=== PATIENT | male | born 1970 | race Caucasian/White ===

== ENCOUNTER → 2017-04-16 15:22 | Emergency (ER) | payer BC ==
[~2017-04-16 15:22] MED LIST: Enoxaparin(*) 100 MG/ML SYR SUBCUT ONE
--- NOTE | 2017-04-16 15:58 | ED ---
Lower Extremity - HPI Summary HPI Summary: 46M presents with left calf pain and swelling for a day. He has a strong family history of factor 5 but does not know if he has it. He does smoke. He denies any recent travel or immobilization. He denies any chest pain or SOB. He denies any trauma. He denies any rash or fever. The pain is located at the back of his knee. He has not taken anything for pain. Has history of neck pain that is going to have surgery on and recent had cortisone shot. - History of Current Complaint Chief Complaint: EDExtremityLower Stated Complaint: LEFT LEG INJURY Time Seen by Provider: 04/16/17 15:44 Pain Intensity: 5 - Allergies/Home Medications Allergies/Adverse Reactions: Allergies Allergy/AdvReac Type Severity Reaction Status Date / Time No Known Allergies Allergy Verified 04/16/17 16:04 PMH/Surg Hx/FS Hx/Imm Hx Endocrine/Hematology History: Denies: Hx Anticoagulant Therapy Cardiovascular History: Denies: Hx Hypertension Infectious Disease History: Denies: Traveled Outside the [place] in Last 30 Days - Family History Known Family History: Positive: Other - factor 5 Review of Systems Negative: Fever Negative: Chest Pain Negative: Shortness Of Breath Positive: Edema - left calf with pain All Other Systems Reviewed And Are Negative: Yes Physical Exam Triage Information Reviewed: Yes Vital Signs On Initial Exam: Initial Vitals Temp Pulse Resp BP Pulse Ox 98.4 F 87 20 145/96 97 04/16/17 15:37 04/16/17 15:37 04/16/17 15:37 04/16/17 15:37 04/16/17 15:37 Vital Signs Reviewed: Yes Appearance: Positive: Well-Appearing Skin: Positive: Warm, Dry Head/Face: Positive: Normal Head/Face Inspection Eyes: Positive: Normal, Conjunctiva Clear Respiratory/Lung Sounds: Positive: Clear to Auscultation, Breath Sounds Present Cardiovascular: Positive: Normal, RRR Musculoskeletal: Positive: Strength/ROM Intact - left leg, Edema Left - mild edema present, Other - good pulses, capillary refill<2 secs, tender to posterior aspect of calf. Negative: Chela Sign Left Diagnostics - Vital Signs Vital Signs Temp Pulse Resp BP Pulse Ox 04/16/17 15:37 98.4 F 87 20 145/96 97 - Laboratory Result Diagrams: 04/16/17 17:11 04/16/17 17:11 Lab Statement: Any lab studies that have been ordered have been reviewed, and results considered in the medical decision making process. - Ultrasound No standard instances Ultrasound Interpretation: Positive (See Comments) - IMPRESSION: Extensive acute appearing LEFT lower extremity deep venous thrombosis as described. Ultrasound Interpretation Completed By: Radiologist Lower Extremity Course/Dx - Course Course Of Treatment: 46M presents with left calf pain and swelling for a day. He has a strong family history of factor 5 but does not know if he has it. He does smoke. He denies any recent travel or immobilization. He denies any chest pain or SOB. He denies any trauma. He denies any rash or fever. The pain is located at the back of his knee. He has not taken anything for pain. Has history of neck pain that is going to have surgery on and recent had cortisone shot. on exam tenderness to half with swelling u/s shows DVT. discussed options with patient of heparin and warfarin vs xarelto and patient wants heparin. told that needs to follow up with a primary to bridge to warfarin. patient understands and agrees with plan. - Diagnoses Differential Diagnosis/HQI/PQRI: Positive: DVT, Fracture (Closed), Sprain Provider Diagnoses: Deep venous thrombosis Discharge - Discharge Plan Condition: Good Disposition: HOME Prescriptions: Enoxaparin(*) [Lovenox(*)] 100 mg SUBCUT Q12HR #20 syringe Patient Education Materials: Deep Venous Thrombosis (ED) Referrals: [facility] [place] [facility] REFERR[facility] [Outside] Additional Instructions: Take lovenox 100mg twice a day until see primary can bridge to warfarin Establish care with primary as soon as possible Return to ED if develop any shortness of breath or chest pain or any new or worsening symptoms
--- NOTE | 2017-04-16 17:02 | RAD ---
INDICATION: LEFT lower extremity pain and edema. COMPARISON: No relevant prior exams available on the [facility] PACS for comparison. TECHNIQUE: Maria scale, color Doppler, and spectral analysis of the deep veins of the LEFT lower extremity. Vessel compression, phasicity, and augmentation assessed. REPORT: LEFT common femoral and great saphenous femoral junction. Near occlusive thrombosis of the profunda femoral vein with mobile appearing thrombus documented on cine loop. Patent proximal and mid segments of the femoral vein. Occlusive thrombosis of the distal segment of the femoral vein as well as the popliteal vein and the paired posterior tibial and peroneal veins. The thrombus appears hypoechoic favoring acute thrombosis. Patency of the RIGHT common femoral vein documented. IMPRESSION: Extensive acute appearing LEFT lower extremity deep venous thrombosis as described.
[2017-04-16 17:21] LABS: Hematocrit 49 % (42-52); Hemoglobin 16.5 g/dl (14.0-18.0); Mean Corpuscular HGB Conc 34 g/dl (31-36); Mean Corpuscular Hemoglobin 31 pg (27-31); Mean Corpuscular Volume 92 fL (80-94); Mean Platelet Volume 8 um3 (7.4-10.4); Red Blood Count 5.35 10^6/ul (4.0-5.4); Red Cell Distribution Width 14 % (10.5-15); White Blood Count 11.3 10^3/ul (3.5-10.8)
[2017-04-16 17:36] LABS: Albumin 4.2 g/dL (3.2-5.2); BUN/Creatinine Ratio 8.9 (8-20); EGFR African American 117.4 (>60); EGFR Non-African American 91.3 (>60); Globulin 3.1 g/dL (2-4); Potassium 3.9 mmol/L (3.5-5.0); Total Bilirubin 0.7 mg/dL (0.2-1.0); Total Protein 7.3 g/dL (6.4-8.9)
[2017-04-16 18:36] VITALS: BP 140/85
== END | disposition home or self-care (01) ==
LOC: ED 15:22
DX: I82.402 Acute embolism and thrombosis of unspecified deep veins of left lower extremity (principal); M79.605 Pain in left leg; R60.9 Edema, unspecified
CPT/HCPCS: 36415; 80053; 85025; 85610; 85730; 99282; J1650

== ENCOUNTER 2017-04-20 02:18 | Observation (INO) | payer BC ==
--- NOTE | 2017-04-20 03:21 | ED ---
Angeles Lyon SooYoung, scribed for Emre Perdomo MD on 04/20/17 at 0301 . 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 Pert PMHx: DVT in LE, started on Lovenox four days ago. Associated sx: racing palpitations, lightheadedness. Denies calf pain. He is scheduled to start taking Warfarin in four days. - History of Current Complaint Chief Complaint: EDShortnessOfBreath Time Seen by Provider: 04/20/17 02:59 Hx Obtained From: Patient Onset/Duration: Still Present Timing: Constant Dyspnea At: Rest - Allergy/Home Medications Allergies/Adverse Reactions: Allergies Allergy/AdvReac Type Severity Reaction Status Date / Time No Known Allergies Allergy Verified 04/16/17 16:04 PMH/Surg Hx/FS Hx/Imm Hx Previously Healthy: No - pos: DVT Endocrine/Hematology History: Denies: Hx Anticoagulant Therapy Cardiovascular History: Denies: Hx Hypertension Sensory History: Denies: Hx Legally Blind Opthamlomology History: Denies: Hx Legally Blind Infectious Disease History: No Infectious Disease History: Denies: Traveled Outside the [place] in Last 30 Days - Family History Known Family History: Positive: Other - factor 5 - Social History Occupation: Employed Full-time Lives: With Family Alcohol Use: Weekly Hx Substance Use: No Substance Use Type: Reports: None Hx Tobacco Use: Yes Smoking Status (MU): Current Every Day Smoker Review of Systems Negative: Fever Positive: Palpitations - racing Positive: Shortness Of Breath Negative: Myalgia - neg: calf pain Neurological: Other - pos: lightheadedness All Other Systems Reviewed And Are Negative: Yes Physical Exam Triage Information Reviewed: Yes Vital Signs On Initial Exam: Initial Vitals Temp Pulse Resp BP Pulse Ox 99 F 93 20 136/94 96 04/20/17 02:22 04/20/17 02:22 04/20/17 02:22 04/20/17 02:22 04/20/17 02:22 Vital Signs Reviewed: Yes Appearance: Positive: Well-Appearing, No Pain Distress Skin: Positive: Warm Head/Face: Positive: Normal Head/Face Inspection Eyes: Positive: ZORAIDA ENT: Positive: Hearing grossly normal Neck: Positive: Supple, Nontender Respiratory/Lung Sounds: Positive: Clear to Auscultation, Breath Sounds Present Cardiovascular: Positive: RRR Abdomen Description: Positive: Nontender, Soft Bowel Sounds: Positive: Present Musculoskeletal: Positive: Strength/ROM Intact Neurological: Positive: Alert, Oriented to Person Place, Time - Gabby Coma Scale Coma Scale Total: 15 Diagnostics - Vital Signs Vital Signs Temp Pulse Resp BP Pulse Ox 04/20/17 02:52 16 04/20/17 02:22 99 F 93 20 136/94 96 - Laboratory Lab Statement: Any lab studies that have been ordered have been reviewed, and results considered in the medical decision making process. - CT CHEST CTA CT Interpretation: Positive (See Comments) - FINDINGS: Positive for acute bilat pulmonary arteries predominantly involving the bilateral proximal and mid lower lobe arteries, but also involving the arteries to the R middle and upper lobes. No saddle emboli. R ventricle slightly enlarged. Consider R heart strain. Negative for thoracic aortic aneurysm or dissection. Lungs are clear at this time. Liver cyst incidentally noted. CT Interpretation Completed By: Radiologist - EKG 0243 Cardiac Rate: NL - 88bpm EKG Rhythm: Sinus Rhythm Ectopy: PVCs EKG Interpretation: Left anterior abraham-block Re-Evaluation - Re-Evaluation 1 Re-Evaluation Time: 04:49 Change: Improved Comment: Discussing results and hospitalist consult with pt. Pt voiced understanding. 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 Pert PMHx: DVT in LE, started on Lovenox four days ago. Associated sx: racing palpitations, lightheadedness. Denies calf pain. He is scheduled to start taking Warfarin in four days. Chest CTA shows "Positive for acute bilat pulmonary arteries predominantly involving the bilateral proximal and mid lower lobe arteries, but also involving the arteries to the R middle and upper lobes. No saddle emboli. R ventricle slightly enlarged. Consider R heart strain. Negative for thoracic aortic aneurysm or dissection. Lungs are clear at this time. Liver cyst incidentally noted.". EKG shows SR with left anerior abraham- block and PVCs. - Diagnoses Provider Diagnoses: Pulmonary embolus - Physician Notifications Discussed Care of Patient With: Kathryn Fountain - hospitalist Time Discussed With Above Provider: 04:48 Instructed by Provider To: Admit As Inpatient Discharge - Discharge Plan Condition: Fair Disposition: ADMITTED TO [facility] The documentation as recorded by the Angeles ortiz SooYoung accurately reflects the service I personally performed and the decisions made by me, Emre Perdomo MD.
[2017-04-20] MEDS ORDERED: Iohexol 350* (CONTRAST) 500 ML MDV IV ONE (03:55)
[2017-04-20] MEDS: NS 0.9% 1000 ML* 1,000 ML IV SCH ×3 (06:40→23:33)
--- NOTE | 2017-04-20 07:58 | RAD ---
HISTORY: Shortness of breath, history of DVT COMPARISONS: None TECHNIQUE: Multiple contiguous axial CT scans of the chest were obtained after the administration of nonionic intravenous contrast, timed to the pulmonary arterial phase of contrast enhancement.. Coronal and sagittal multiplanar reformations are also submitted for review. FINDINGS: NECK AND THYROID: The lower neck and thyroid are unremarkable. CHEST WALL: There is no lower cervical, axillary, or supraclavicular lymphadenopathy by size criteria. HEART AND PERICARDIUM: There is mild enlargement of the right ventricle AORTA AND PULMONARY VASCULATURE: There are filling defects to the lobar and segmental branches of the right middle lobe and lower lobes bilaterally, and segmental branches of the right upper lobe consistent with acute pulmonary emboli. MEDIASTINUM: There is no mediastinal lymphadenopathy by size criteria. CANDIDA: There is no hilar lymphadenopathy by size criteria. AIRWAY AND ESOPHAGUS: The airway is unremarkable, without endobronchial filling defect. The esophagus is grossly normal. LUNG PARENCHYMA: The lungs are clear. PLEURA: No pleural abnormalities are noted. UPPER ABDOMEN: The patient is status postcholecystectomy. A hepatic cyst is noted BONES AND SOFT TISSUES: Degenerative changes are noted of the spine OTHER: None. IMPRESSION: BILATERAL PULMONARY EMBOLI, WITH MILD RIGHT VENTRICULOMEGALY SUGGESTIVE OF RIGHT HEART STRAIN. PRELIMINARY FINDINGS WERE DISCUSSED WITH DR. AARON, BY DR. SEGAL, AND 4:44 AM ON APRIL 20, 2017.
[2017-04-20] MEDS ORDERED: Enoxaparin(*) 100 MG/ML SYR SUBCUT SCH (09:00)
--- NOTE | 2017-04-20 09:19 | HP ---
CC: [facility] * HISTORY AND PHYSICAL: DATE OF ADMISSION: 04/20/17. PRIMARY CARE PROVIDER: Cabrera [facility]. CHIEF COMPLAINT: Lightheadedness and shortness of breath. HISTORY OF PRESENT ILLNESS: Mr. Gutierrez is a 46-year-old male who was in the emergency room on 04/16/17 with complaints of left calf swelling. At that time , he was diagnosed with an extensive left lower extremity DVT. The patient was started on Lovenox with instructions to establish with primary care provider start the bridging process to Coumadin. The patient states that he saw his new primary care provider yesterday and was given a prescription for Coumadin to start this coming Monday. The patient states he had not been having any issues with the Lovenox and had been taking it as prescribed. He states that he was lying in bed on the morning of admission when he felt the need to get up to go the bathroom. He noticed the pain in his left calf had changed position. He felt that that was odd. In getting up to the bathroom, he felt extremely lightheaded as if he was going to pass out. He also noted that he was short of breath. The patient ultimately ended up walking next door to his dad's house to ask for help. His dad brought him into the emergency room. The patient does admit to some mild discomfort with deep breath, but no significant chest pain. PAST MEDICAL HISTORY: 1. Left lower extremity DVT. 2. Chronic neck pain. PAST SURGICAL HISTORY: None. MEDICATIONS: Lovenox 100 mg subcutaneous q. 12 hours. ALLERGIES: No known drug allergies. FAMILY HISTORY: Mom at the age of 75 of what sounds to be heart failure and complications related to an upper GI bleed. Dad is living. He is 77. He has coronary artery disease. Patient's sister has a history of factor V Leiden deficiency. SOCIAL HISTORY: The patient is approximately half a pack per day smoker for the last 20 years. He drinks alcohol rarely. 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 He is . He has six children. His dad is his healthcare proxy. REVIEW OF SYSTEMS: A complete 11-systems review of systems is obtained. Pertinent positives and negatives are as per HPI and otherwise negative. PHYSICAL EXAMINATION GENERAL: The patient is a well-developed middle-aged male, lying in the stretcher, in no acute distress. VITAL SIGNS: Blood pressure 126/76, pulse 67, respirations 16, temp 99.0, O2 sat 94% on room air. HEENT: Pupils are equal. They are round. They react to light. Extraocular muscles intact. Oropharynx is clear. Oral mucosa is moist. Patient wears a complete upper denture and a partial on the bottom. There is no submandibular cervical or supraclavicular adenopathy. Thyroid is not enlarged. No thyroid nodules noted. PULMONARY: Lungs are clear to auscultation bilaterally, though breath sounds are diminished in all lung gamez. CARDIAC: Normal S1, S2. Regular rate and rhythm. I do not appreciate any murmurs. There is no significant pitting edema of either bilateral lower extremities. ABDOMEN: Bowel sounds are present. Abdomen is soft, nontender, nondistended. MUSCULOSKELETAL: There is no cyanosis or clubbing of the digits. There is full active range of motion of all 4 extremities. NEUROLOGIC: Cranial nerves II through XII are grossly intact. Sensation is intact to light touch throughout. Strength is 5/5 and symmetric in both upper extremities and lower extremities bilaterally. SKIN: Warm and dry. There are no rashes. PSYCH: The patient is alert and oriented x3. Affect appears appropriate. DIAGNOSTIC STUDIES/LAB DATA: None from 04/20/17. Lab work from 04/16/17 reveals a white blood cell count of 11.3, hemoglobin 16.5 , hematocrit of 49, platelets 171. INR of 1.02. Sodium 135, potassium 3.9, chloride 100, CO2 of 28, BUN 8, creatinine 0.90, glucose 82, calcium 9.0, bilirubin 0.7, AST 12, ALT 9, alk phos 80, albumin of 4.2. CTA chest reveals acute bilateral pulmonary emboli involving the bilateral proximal and mid lower lobe arteries, also involving the arteries of the right middle and upper lobes. The right ventricle appears slightly enlarged on CT. EKG reveals normal sinus rhythm with PVCs, no acute ST-T wave abnormalities. ASSESSMENT AND PLAN: Mr. Gutierrez is a 46-year-old male with a recent diagnosis of left lower extremity DVT that appears to be unprovoked with a positive family history for factor V Leiden deficiency, who now presents to the emergency with complaints of lightheadedness and shortness of breath and was found to have bilateral extensive pulmonary emboli. 1. Bilateral pulmonary emboli and left lower extremity DVT. The patient's DVT appears to be unprovoked. His sister does carry a history of factor V Leiden deficiency. It would likely benefit the patient to be evaluated for a hypercoagulable state. However, he has been on Lovenox and I do not know that this is the appropriate time to do that testing. The patient may benefit from a Hematology evaluation as an outpatient prior to discontinuing his anticoagulant therapy. The patient does wish to stay on Lovenox and bridged Coumadin due to potential for upcoming surgery. The patient will be started on Coumadin this evening. I do not believe there is any reason to wait any longer before starting this. The patient will undergo echocardiogram to evaluate for right heart strain. Additionally, given the extensive burden of PE, currently I will Doppler the patient's left lower extremity to evaluate for any further DVT burden. The patient will be monitored on telemetry under observation status. He likely could be discharged home tomorrow. 2. Tobacco abuse. The patient has been encouraged to quit smoking. 3. DVT prophylaxis. According to the Adult Thrombosis Prophylaxis Risk Factor Assessment Guide, the patient has a total risk factor score of 6 making him highest risk. He is already on Lovenox and this will be continued. 4. Code status is full and again the patient indicates that his dad is his healthcare proxy. TIME SPENT: 55 minutes were spent admitting this patient. [id number]/CPS #: [id number] MARTHA
[2017-04-20 09:47] LABS: Hematocrit 44 % (42-52); Hemoglobin 14.8 g/dl (14.0-18.0); Mean Corpuscular HGB Conc 34 g/dl (31-36); Mean Corpuscular Hemoglobin 31 pg (27-31); Mean Corpuscular Volume 92 fL (80-94); Mean Platelet Volume 8 um3 (7.4-10.4); Red Blood Count 4.72 10^6/ul (4.0-5.4); Red Cell Distribution Width 13 % (10.5-15); White Blood Count 7.6 10^3/ul (3.5-10.8)
[2017-04-20 10:06] LABS: Calcium 8.7 mg/dL (8.6-10.3)
--- NOTE | 2017-04-20 11:27 | RAD ---
INDICATION: Pulmonary embolism. COMPARISON: No relevant prior exams available on the [facility] PACS for comparison. TECHNIQUE: Maria scale, color Doppler, and spectral analysis of the deep veins of the LEFT lower extremity. Vessel compression, phasicity, and augmentation assessed. REPORT: The LEFT common femoral, great saphenous, profunda femoral, and proximal and mid segments of the femoral vein are patent. There is occlusive DVT at the distal segment of the femoral vein and at the popliteal vein. There is nonocclusive DVT at the paired posterior tibial and peroneal veins. Patency of the RIGHT common femoral vein documented. IMPRESSION: LEFT lower extremity DVT extending as far proximal as the distal segment of the femoral vein.
[2017-04-20] MEDS ORDERED: Perflutren Lipid Microsphere* 3 ML VIAL ONE (13:39)
[2017-04-20 14:03] LABS: EGFR African American 117.4 (>60); EGFR Non-African American 91.3 (>60)
--- NOTE | 2017-04-20 15:05 | ECHO ---
Patient: MEDARDO GOSS [facility] Rec#: [id number] : 1970 Date: 04/20/2017 Age: 46y Height: 172.72 cm / 68.0 in Weight: 102.06 kg / 224.9 lbs Sex: M BSA: 2.15 Room#: 442 Admit Date#: 04/20/2017 Type: Inpatient Referring: Kathryn Fountain DO Reading: Joe Mcclellan MD Shuttle Repairer: Charmaine Dee RD,RDMS Transthoracic Echocardiogram Indication: PE BP: 126/76 HR: 50 Rhythm: NSR Findings History: Bilateral PEs, DVT, smoker Technical Comments: The study is technically limited due to poor acoustic windows. Completed 1420 Left Ventricle: The left ventricular chamber size is normal. Mild concentric left ventricular hypertrophy is observed. Left ventricular systolic function is at the lower limits of normal. The estimated ejection fraction is 50-55%. Normal left ventricular diastolic filling is observed. Left Atrium: The left atrial chamber size is normal. Right Ventricle: The right ventricle wall thickness is mildly increased.6 mm. The right ventricular cavity size is normal. The right ventricular global systolic function is mildly reduced. Right Atrium: The right atrial cavity size is normal. Aortic Valve: There is no evidence of aortic valve thickening. Systolic excursion of the aortic valve is normal. There is no evidence of aortic regurgitation. There is no evidence of aortic stenosis. Mitral Valve: The mitral valve leaflets appear normal. There is a trace of mitral regurgitation. There is no evidence of mitral stenosis. Tricuspid Valve: The tricuspid valve leaflets are normal. There is trace tricuspid regurgitation. Pulmonic Valve: The pulmonic valve structure is not well visualized. There is no evidence of pulmonic regurgitation. Pericardium: There is no significant pericardial effusion. Aorta: The ascending aorta is not well visualized. There is no dilatation of the aortic arch. The aortic root is normal in size. Pulmonary Artery: The main pulmonary artery is not well visualized. Venous: The inferior vena cava appears normal in size. There is a greater than 50% respiratory change in the inferior vena cava dimension. Contrast: Definity was used to optimize study. A total of 3 ml was used Summary: There was not any prior study for comparison. Conclusions Mild concentric left ventricular hypertrophy is observed. The estimated ejection fraction is 50-55%. There is a trace of mitral regurgitation. There is trace tricuspid regurgitation. The right ventricle wall thickness is mildly increased.6 mm. The right ventricular global systolic function is mildly reduced. Measurements Name Value Normal Range RVIDd (AP) 2D 2.4 cm (0.9 - 2.6) RVDdMajor (2D) 3.6 cm (2.2 - 4.4) RAd ISD 4CH 3.8 cm (3.4 - 4.9) RA (A4C)W 3.8 cm (2.9 - 4.6) IVSd (2D) 1.3 cm (0.6 - 1) LVPWd (2D) 1.3 cm (0.6 - 1) LVIDd (2D) 4.7 cm (3.6 - 5.4) LVIDs (2D) 3.7 cm - LV FS (2D) 31 % (25 - 45) Aortic Annulus 2.2 cm (1.4 - 2.6) Ao root diameter (2D) 3.2 cm (2.1 - 3.5) Aortic arch 3.1 cm (1.8 - 3.4) LA dimension (AP) 2D 3.4 cm (2.3 - 3.8) LAd ISD 4CH 4.3 cm (2.9 - 5.3) LA ISD 4CH W 3.2 cm (2.5 - 4.5) Name Value Normal Range LA ESV SP 4CH (A/L) 34.55 ml - LA ESV SP 2CH (A/L) 58.3 ml - LA ESV BP (A/L) 47.6 ml - LA ESV BP (A/L) index 22 ml/m2 - LA ESV SP 4CH (MOD) 31.44 ml - LA ESV SP 2CH (MOD) 56.5 ml - Name Value Normal Range MV E-wave Vmax 0.5 m/sec - MV deceleration time 179 msec - MV A-wave Vmax 0.3 m/sec - MV E:A ratio 1.7 ratio - P. vein S-wave Vmax 0.3 m/sec - P. vein D-wave Vmax 0.4 m/sec - P. vein S:D Vmax ratio 0.7 ratio - P. vein A-wave duration 67 msec - LV septal e' Vmax 0.09 m/sec - LV lateral e' Vmax 0.13 m/sec - LV E:e' septal ratio 5.6 ratio - LV E:e' lateral ratio 3.8 ratio - Name Value Normal Range AV Vmax 1 m/sec - AV VTI 21 cm - AV peak gradient 4 mmHg - AV mean gradient 2.3 mmHg - LVOT Vmax 0.9 m/sec - LVOT VTI 19.7 cm - LVOT peak gradient 3.2 mmHg - LVOT mean gradient 1.8 mmHg - TOPHER Vmax 0.8 m/sec - Name Value Normal Range RAP 8 mmHg - IVC diameter 1.5 cm - Name Value Normal Range PV Vmax 0.6 m/sec - PV peak gradient 1.4 mmHg -
[2017-04-20] MEDS ORDERED: Warfarin TAB(*) 5 MG PO SCH (17:00)
--- NOTE | 2017-04-20 17:11 | PN ---
Subjective Date of Service: 04/20/17 Interval History: HOSPITALIST PROGRESS NOTE Patient seen and examined at bedside. He c/o left leg pain. Dyspnea and chest pain are still present but less intense. Family History: Unchanged from Admission Social History: Unchanged from Admission Past Medical History: Unchanged from Admission Objective Active Medications: Fondaparinux (Arixtra*) 7.5 mg SUBCUT Q24H RAGINI Fondaparinux (Arixtra*) 2.5 mg SUBCUT Q24H RAGINI Sodium Chloride (Ns 0.9% 1000 Ml*) 1,000 mls @ 150 mls/hr IV PER RATE [facility] Last Admin: 04/20/17 06:40 Dose: 150 mls/hr Warfarin Sodium (Coumadin Tab(*)) 5 mg PO DAILY@1700 [facility] PRN Reason: Protocol Vital Signs 04/20/17 04/20/17 11:34 15:38 Temperature 97.5 F 97.9 F Pulse Rate 63 60 Respiratory 16 16 Rate Blood Pressure 102/70 111/66 (mmHg) O2 Sat by Pulse 96 97 Oximetry Oxygen Devices in Use Now: None Appearance: Young male lying in bed in NAD. Eyes: No Scleral Icterus Ears/Nose/Mouth/Throat: Mucous Membranes Moist Neck: Trachea Midline Respiratory: Symmetrical Chest Expansion and Respiratory Effort, Clear to Auscultation Cardiovascular: RRR - Normal S1 and S2 Abdominal: NL Sounds; No Tenderness; No Distention Extremities: No Edema Neurological: Alert and Oriented x 3, NL Muscle Strength and Tone Lines/Tubes/Other Access: Clean, Dry and Intact Peripheral IV Nutrition: Taking PO's Result Diagrams: 04/20/17 09:35 04/20/17 09:34 Assess/Plan/Problems-Billing Assessment: Mr. Gutierrez is a 46yo M with family history of Factor V Leiden, personal h/o tobacco abuse, who was diagnosed with LLE DVT 4 days ago, and now presents with PE. - Patient Problems (1) Pulmonary embolism Comment: - CTA chest showed bilateral PE with mild right ventriculomegaly suggestive of RV strain. - Echocardiogram shows EF 50-55%, with mild increase of RV wall thickness, and mild reduction of RV systolic function. - Lovenox dose is adequate for patient's weight, he states he's been compliant with the injections. - Case d/w Dr. Mcelroy - consider this case as a Lovenox failure and recommended treatment with Arixtra as a bridge to Warfarin. She recommended follow up in their office as outpatient and will pursue hypercoagulable w/u at that time. (2) DVT (deep venous thrombosis) Comment: - LE doppler shows LLE DVT - continue management with Arixtra and Warfarin. (3) Tobacco abuse Comment: - Advised about tobacco cessation. (4) DVT prophylaxis Comment: - Arixtra/Warfarin. Status and Disposition: Inpatient.
[2017-04-20] MEDS ORDERED: Fondaparinux* 2.5 MG/0.5 ML SYRINGE SUBCUT SCH (22:00)
[2017-04-20] MEDS ORDERED: Fondaparinux* 7.5 MG/0.6 ML SYRINGE SUBCUT SCH (22:00)
[2017-04-21] MEDS: NS 0.9% 1000 ML* 1,000 ML IV SCH (06:01)
[2017-04-21 12:17] VITALS: BP 96/65
[2017-04-21] MEDS ORDERED: Fondaparinux* 2.5 MG/0.5 ML SYRINGE SUBCUT ONE (16:00)
[2017-04-21] MEDS ORDERED: Fondaparinux* 7.5 MG/0.6 ML SYRINGE SUBCUT ONE (16:00)
--- NOTE | 2017-04-22 05:24 | DS ---
ADDENDUM NOW INCLUDED ON S REPORT CC: Dr. Silveira; Dr. Mcelroy, Oncology * DISCHARGE SUMMARY: DATE OF ADMISSION: 04/20/17 DATE OF DISCHARGE: 04/21/17 PRIMARY CARE PROVIDER: Dr. Silveira. DISCHARGE DIAGNOSIS: Acute bilateral pulmonary emboli in patient previously diagnosed with acute deep venous thrombosis of the left lower extremity. SECONDARY DIAGNOSES: 1. History of left lower extremity deep venous thrombosis in the past. 2. History of chronic neck pain. The patient is in preparation for surgery that was supposed to happen in 2 months. MEDICATIONS AT DISCHARGE: Include: 1. Arixtra 10 mg subcutaneously every 24 hours. 2. Coumadin 5 mg p.o. daily. INR to be checked in 3 days after discharge. INR on 04/21/17 was 1.05. LABORATORY DATA AND STUDIES PERFORMED DURING THE HOSPITAL STAY: Included: On 04/20/17, the patient's left lower extremity Dopplers show impression: "Left lower extremity DVT extending to as far proximal as the distal segment of the femoral vein." CT angiogram of the chest obtained on 04/20/17, impression: "Bilateral pulmonary emboli with mild right ventriculomegaly suggestive of right heart strain." Transthoracic echocardiogram obtained on 04/20/17 showed multiple concentric LVH , EF of 50% to 55%, trace mitral regurgitation, trace tricuspid regurgitation, the right ventricular wall thickness is mildly increased at 0.6 mm. The right ventricular global systolic function is mildly reduced. HOSPITALIZATION COURSE: Carter Gutierrez is a 46-year-old male who, on 04/16/17, presented to the hospital complaining of left calf pain and swelling and was noted to have left lower extremity DVT. At this point, he discussed anticoagulation with the ED provider and it was decided for the patient to be discharged on Lovenox. He was discharged on Lovenox and on 04/19/17, the patient saw Dr. Silveira for evaluation. Dr. Silveira noted that his DVT is recurrent as the patient already had a history of left lower extremity DVT and the family has history of factor V Leiden positivity. Dr. Silveira referred the patient to Hematology for evaluation. Nevertheless, on 04/20/17, the patient acutely became dyspneic and the pain that was noted to be in posterior left thigh resolved after that. He came into the ED for evaluation and at that point , CT angiogram of the chest noted bilateral PEs. The case was discussed between the previous provider on the hospitalist service, Dr. Benitez, and Dr. Mcelroy from Hematology/Oncology. Dr. Mcelroy's impression was that the patient most likely is a Lovenox failure and he should be started on Arixtra. Arixtra was started and continued throughout the patient's hospital stay with good result. The patient was also placed on Coumadin, which was actually already started by Dr. Silveira. He is going to be discharged home. Recommendation to follow up with Dr. Silveira next week. INR to be checked in 3 days. The patient also is to follow up with Dr. Mcelroy in approximately 1 to 2 weeks for further workup for possibility of hypercoagulable state. PHYSICAL EXAMINATION: At the time of discharge, blood pressure of 96/65, heart rate of 53 and regular, respiratory rate 22, oxygen saturation 96% on room air, temperature 98.5. General: The patient is a very pleasant 46-year-old male, who is not in acute distress. Alert, awake, and oriented x3. HEENT: Head: Atraumatic, normocephalic. Eyes: Pupils equal, round, and reactive to light and accommodation. Oropharynx clear. Mucosa moist. Neck: Supple. No JVD. No bruits bilaterally. Cardiovascular: Regular rate and rhythm. No murmur. Respiratory: Clear to auscultation bilaterally. Abdomen: Soft, nontender. Bowel sounds present in all 4 quadrants. Extremities: There is left calf edema and tenderness to palpation present. There is no other edema and no ankle edema in bilateral lower extremities. Pulses are +2 bilaterally. There is no clubbing or cyanosis. On evaluation of the skin, no ecchymotic areas or rashes noted. Please note this is a short summary of the patient's hospitalization. Please refer to further medical records for details. ADDENDUM: Please note that on 04/22/17, the patient called me stating that [facility] told him that the insurance does not cover his Arixtra injections and his co-pay would be $1500 dollars. That is despite me checking it originally with [facility], who stated that the patient's co-pay for Arixtra would be 100 dollars. Nevertheless, further on, when I discussed the details with the patient, the patient stated that he was on Lovenox only little bit less than 2 days before he had the symptoms of pulmonary embolism and shortness of breath. Also, from the review of venous Doppler study from 04/16/17, the patient had a mobile-appearing clot of the profunda femoral vein. That clot was not apparent on the Doppler study from 04/20/17. I discussed the findings with the oncologist on-call. At this point, the interview of the details of the patient's presentation and that, the patient stated that he has not started on anticoagulation until a day and a half later than when he was prescribed his blood thinners and that means that he was actually treated with Lovenox only for little bit less than 2 days before his pulmonary embolism occurred. His clot also did not progress according to the Doppler study, but the mobile clot that was noted originally on 04/16/17 was gone on the second study. At this point, we can assume that the mobile clot caused the DVT and it was not a Lovenox failure since the clot did not progress per se. Also, the Lovenox was not instituted for long enough to document a failure. The oncologist on-call, Dr. Thompson, agreed with me. At this point, it was decided that patient is going to be continued on his Lovenox injections on b.i.d. basis until his Coumadin is therapeutic. He is to follow up with his primary care provider and Dr. Mcelroy as previously signed. [id number]/[facility] #: [id number]/[facility] #: [id number] [facility]
--- NOTE | 2017-04-23 05:42 | DS ---
CC: Dr. Silveira; Dr. Mcelroy; Dr. Thompson * DISCHARGE SUMMARY:* ADDENDUM: Please note that on 04/22/17, the patient called me stating that [facility] told him that the insurance does not cover his Arixtra injections and his co-pay would be 1500 dollars. That is despite me checking it originally with [facility], who stated that the patient's co-pay for Arixtra would be 100 dollars. Nevertheless, further on, when I discussed the details with the patient, the patient stated that he was on Lovenox only little bit less than 2 days before he had the symptoms of pulmonary embolism and shortness of breath. Also, from the review of venous Doppler study from , the patient had a mobile-appearing clot of the profunda femoral vein. That clot was not apparent on the Doppler study from 04/20/17. I discussed the findings with the oncologist on-call. At this point, the interview of the details of the patient's presentation the patient stated that he has not started on anticoagulation until a day and a half later than when he was prescribed his blood thinners and that means that he was actually treated with Lovenox only for little bit less than 2 days before his pulmonary embolism occurred and that this clot did not progress according to the Doppler study, but the mobile clot that was noted originally on 04/16/17 was gone on the second study. At this point, we can assume that the mobile clot caused the DVT and it was not a Lovenox failure since the clot did not progress per se. Also, the Lovenox was not instituted for long enough to document a failure. The oncologist on-call, Dr. Thompson, agreed with me. At this point, it was decided that patient is going to be continued on his Lovenox injections on b.i.d. basis until his Coumadin is therapeutic. He is to follow up with his primary care provider and Dr. Mcelroy as previously signed. [id number]/[facility] #: [id number] [facility]ren
== END 2017-04-21 15:32 | disposition home or self-care (01) | DRG 134 ==
LOC: ED 02:18 → MEDTELE 06:10 → OBSVTOIN 10:46 → INTOOBSV 10:46
PROVIDERS: ADMIT Hospitalist; ATTEND Internal Medicine
DX: I26.99 Other pulmonary embolism without acute cor pulmonale (principal); I82.402 Acute embolism and thrombosis of unspecified deep veins of left lower extremity; M54.2 Cervicalgia; F17.210 Nicotine dependence, cigarettes, uncomplicated; Z79.01 Long term (current) use of anticoagulants; Z82.49 Family history of ischemic heart disease and other diseases of the circulatory system; Z83.2 Family history of diseases of the blood and blood-forming organs and certain disorders involving the immune mechanism; G89.29 Other chronic pain
CPT/HCPCS: 36415; 71275; 80048; 85025; 85610; 93005; 93306; 99406; A9270-GY; C8929; J1650; Q9967

== ENCOUNTER 2017-04-23 17:05 | Emergency (ER) | payer BC ==
[2017-04-23] MEDS ORDERED: NS 0.9% 1000 ML* 1,000 ML IV ONE (17:24)
[2017-04-23] MEDS ORDERED: Morphine INJ* 4 MG/ML 1 ML SYRINGE IV ONE ×2 (17:24→17:55)
[2017-04-23 17:31] LABS: Hematocrit 48 % (42-52); Hemoglobin 16.3 g/dl (14.0-18.0); Mean Corpuscular HGB Conc 34 g/dl (31-36); Mean Corpuscular Hemoglobin 31 pg (27-31); Mean Corpuscular Volume 90 fL (80-94); Mean Platelet Volume 8 um3 (7.4-10.4); Red Blood Count 5.29 10^6/ul (4.0-5.4); Red Cell Distribution Width 13 % (10.5-15); White Blood Count 7.4 10^3/ul (3.5-10.8)
[2017-04-23 17:49] LABS: Albumin 4.2 g/dL (3.2-5.2); BUN/Creatinine Ratio 8.6 (8-20); Calcium 8.7 mg/dL (8.6-10.3); EGFR African American 98.2 (>60); EGFR Non-African American 76.4 (>60); Globulin 3.2 g/dL (2-4); Potassium 3.1 mmol/L (3.5-5.0); Total Bilirubin 0.4 mg/dL (0.2-1.0); Total Protein 7.4 g/dL (6.4-8.9)
--- NOTE | 2017-04-23 18:10 | RAD ---
Indication: Chest pain. Single frontal view of the chest performed at 1719 hours was reviewed. No prior study is available. No mediastinal shift is noted. Heart is of normal size and configuration. Lung gamez appear clear. IMPRESSION: NO ACTIVE CARDIOPULMONARY DISEASE IS NOTED.
[2017-04-23] MEDS ORDERED: Iohexol 350* (CONTRAST) 500 ML MDV IV ONE (18:16)
--- NOTE | 2017-04-23 18:49 | RAD ---
Indication: Known Pulmonary embolus progressive shortness of breath. Contrast:Administered 83.0 ml of Contrast -- mg/ml CTA of the chest was performed after IV contrast administration. Coronal and sagittal reconstructed images were obtained. Comparison is made with previous exam dated April 20, 2017. The pulmonary arterial tree is well opacified. Filling defect in the left lower lobe pulmonary arteries are noted which are improved since previous exam. Left upper lobe pulmonary embolus are similar to that seen previously. Pulmonary artery filling defect and embolus in the right lower lobe and right middle lobe arteries are also unchanged. The aorta demonstrates no evidence of aneurysmal dilatation or aortic dissection. Inferior thyroid lobes are unremarkable. No mediastinal or hilar adenopathy is noted. The heart demonstrates no pericardial effusion. The lung gamez demonstrate no pleural fluid, nodules or masses. No alveolar consolidation is noted. No pleural fluid is identified. The visualized abdominal organs are unremarkable. There is a right lobe hepatic cyst noted. IMPRESSION: Pulmonary embolus is persistent and appears to be slightly improved when compared to previous exam of April 30, 2017. Right lobe hepatic cyst.
[2017-04-23] MEDS ORDERED: Potassium Chlor TAB* 20 MEQ TAB.ER PO ONE (19:12)
[2017-04-23 19:39] LABS: Magnesium 1.9 mg/dL (1.9-2.7)
[2017-04-23] MEDS ORDERED: Magnesium Sulfate 2 GM IV* 2 GM/50 ML BAG IVPB ONE (19:56)
[2017-04-23] MEDS ORDERED: Enoxaparin(*) 100 MG/ML SYR SUBCUT ONE (20:00)
[2017-04-23] MEDS ORDERED: Warfarin TAB(*) 5 MG PO ONE (20:00)
[2017-04-23 21:11] VITALS: BP 115/74
--- NOTE | 2017-04-23 21:55 | ED ---
Angeles Lyon SooYoung, scribed for Rosa Mcmanus MD on 04/23/17 at 1719 . HPI Chest Pain - HPI Summary HPI Summary: A 46 y/o M presents to ED by car with sudden-onset CP and SOB onset [employer]. Pt was diagnosed with multiple DVTs in LLE one week prior on 04/16/17. Pt returned to ED on 04/20/2017 and dx: PE. Pt is taking Lovonox and Coumadin currently. Associated sx: dizziness. - History of Current Complaint Time Seen by Provider: 04/23/17 17:10 Hx Obtained From: Patient, Family/Web Site Administrator - father present, Medical Records Onset/Duration: Still Present Timing: Constant Initial Severity: Moderate Current Severity: Moderate Pain Intensity: 5 Pain Scale Used: 0-10 Numeric Associated Signs and Symptoms: Positive: Dizziness, Shortness of Breath - Additional Pertinent History Primary Care Physician: RICARDO - Allergy/Home Medications Allergies/Adverse Reactions: Allergies Allergy/AdvReac Type Severity Reaction Status Date / Time No Known Allergies Allergy Verified 04/16/17 16:04 PMH/Surg Hx/FS Hx/Imm Hx Previously Healthy: No Endocrine/Hematology History: Denies: Hx Anticoagulant Therapy, Hx Diabetes Cardiovascular History: Reports: Hx Deep Vein Thrombosis Denies: Hx Hypertension Respiratory History: Reports: Hx Pulmonary Embolism - GI History: Reports: Hx Gall Bladder Disease History: Denies: Hx Dialysis, Hx Renal Disease Musculoskeletal History: Reports: Other Musculoskeletal History - Neck injury early 2016 Sensory History: Denies: Hx Contacts or Glasses, Hx Legally Blind, Hx Hearing Aid Opthamlomology History: Denies: Hx Contacts or Glasses, Hx Legally Blind Infectious Disease History: Denies: Traveled Outside the [place] in Last 30 Days - Family History Known Family History: Positive: Cardiac Disease - mother, father, Other - factor 5 - Social History Occupation: Employed Full-time Lives: With Family Alcohol Use: Weekly Hx Substance Use: No Substance Use Type: Reports: None Hx Tobacco Use: Yes Smoking Status (MU): Current Every Day Smoker Review of Systems Negative: Fever Positive: Chest Pain Positive: Shortness Of Breath Neurological: Other - pos: dizziness All Other Systems Reviewed And Are Negative: Yes Physical Exam Triage Information Reviewed: Yes Vital Signs On Initial Exam: Initial Vitals Temp Pulse Resp BP Pulse Ox 98.7 F 84 16 133/88 100 08/13/17 17:19 04/23/17 17:19 04/23/17 17:19 04/23/17 17:19 04/23/17 17:19 Vital Signs Reviewed: Yes Appearance: Positive: Ill-Appearing - mild, Pain Distress - mild Skin: Positive: Warm, Skin Color Reflects Adequate Perfusion, Dry Eyes: Positive: EOMI, ZORAIDA Neck: Positive: Supple, Nontender Respiratory/Lung Sounds: Positive: Clear to Auscultation, Breath Sounds Present. Negative: Rales, Rhonchi, Wheezes Cardiovascular: Positive: RRR. Negative: Murmur, Rub, Other - neg: gallop Abdomen Description: Positive: Nontender, Soft. Negative: Distended, Guarding, Other: - neg: rebound Bowel Sounds: Positive: Present Musculoskeletal: Positive: Strength/ROM Intact. Negative: Edema Left, Edema Right Neurological: Positive: Sensory/Motor Intact, Alert, Oriented to Person Place, Time, CN Intact II-III Psychiatric: Positive: Anxious Diagnostics - Vital Signs Vital Signs Temp Pulse Resp BP Pulse Ox 04/23/17 21:30 63 17 97 04/23/17 21:00 65 17 115/74 97 04/23/17 20:30 65 18 114/75 97 04/23/17 20:00 63 18 106/74 96 04/23/17 19:30 68 15 111/82 97 04/23/17 19:00 65 21 117/73 97 04/23/17 18:55 98 04/23/17 18:39 67 18 109/68 97 04/23/17 18:00 74 15 125/81 97 04/23/17 17:59 18 04/23/17 17:33 74 17 96 04/23/17 17:31 20 122/84 04/23/17 17:19 98.7 F 84 16 133/88 100 - Laboratory Lab Results: Lab Results 04/23/17 04/23/17 04/23/17 Range/Units 17:15 17:15 17:15 WBC 7.4 (3.5-10.8) 10^3/ul RBC 5.29 (4.0-5.4) 10^6/ul Hgb 16.3 (14.0-18.0) g/dl Hct 48 (42-52) % MCV 90 (80-94) fL MCH 31 (27-31) pg MCHC 34 (31-36) g/dl RDW 13 (10.5-15) % Plt Count 313 (150-450) 10^3/ul MPV 8 (7.4-10.4) um3 Neut % (Auto) 60.8 (38-83) % Lymph % (Auto) 28.6 (25-47) % Frontier % (Auto) 7.7 (1-9) % Eos % (Auto) 1.8 (0-6) % Baso % (Auto) 1.1 (0-2) % Absolute Neuts (auto) 4.5 (1.5-7.7) 10^3/ul Absolute Lymphs (auto) 2.1 (1.0-4.8) 10^3/ul Absolute Monos (auto) 0.6 (0-0.8) 10^3/ul Absolute Eos (auto) 0.1 (0-0.6) 10^3/ul Absolute Basos (auto) 0.1 (0-0.2) 10^3/ul Absolute Nucleated RBC 0 10^3/ul Nucleated RBC % 0 INR (Anticoag Therapy) 1.15 H (0.89-1.11) Sodium 135 (133-145) mmol/L Potassium 3.1 L (3.5-5.0) mmol/L Chloride 102 (101-111) mmol/L Carbon Dioxide 25 (22-32) mmol/L Anion Gap 8 (2-11) mmol/L BUN 9 (6-24) mg/dL Creatinine 1.05 (0.67-1.17) mg/dL Est GFR ( Amer) 98.2 (>60) Est GFR (Non-Af Amer) 76.4 (>60) BUN/Creatinine Ratio 8.6 (8-20) Glucose 116 H (70-100) mg/dL Lactic Acid (0.5-2.0) mmol/L Calcium 8.7 (8.6-10.3) mg/dL Magnesium 1.9 (1.9-2.7) mg/dL Total Bilirubin 0.40 (0.2-1.0) mg/dL AST 27 (13-39) U/L ALT 37 (7-52) U/L Alkaline Phosphatase 81 (34-104) U/L Troponin I 0.00 (<0.04) ng/mL Total Protein 7.4 (6.4-8.9) g/dL Albumin 4.2 (3.2-5.2) g/dL Globulin 3.2 (2-4) g/dL Albumin/Globulin Ratio 1.3 (1-3) 04/23/17 04/23/17 Range/Units 17:15 20:30 WBC (3.5-10.8) 10^3/ul RBC (4.0-5.4) 10^6/ul Hgb (14.0-18.0) g/dl Hct (42-52) % MCV (80-94) fL MCH (27-31) pg MCHC (31-36) g/dl RDW (10.5-15) % Plt Count (150-450) 10^3/ul MPV (7.4-10.4) um3 Neut % (Auto) (38-83) % Lymph % (Auto) (25-47) % Frontier % (Auto) (1-9) % Eos % (Auto) (0-6) % Baso % (Auto) (0-2) % Absolute Neuts (auto) (1.5-7.7) 10^3/ul Absolute Lymphs (auto) (1.0-4.8) 10^3/ul Absolute Monos (auto) (0-0.8) 10^3/ul Absolute Eos (auto) (0-0.6) 10^3/ul Absolute Basos (auto) (0-0.2) 10^3/ul Absolute Nucleated RBC 10^3/ul Nucleated RBC % INR (Anticoag Therapy) (0.89-1.11) Sodium (133-145) mmol/L Potassium (3.5-5.0) mmol/L Chloride (101-111) mmol/L Carbon Dioxide (22-32) mmol/L Anion Gap (2-11) mmol/L BUN (6-24) mg/dL Creatinine (0.67-1.17) mg/dL Est GFR ( Amer) (>60) Est GFR (Non-Af Amer) (>60) BUN/Creatinine Ratio (8-20) Glucose (70-100) mg/dL Lactic Acid 1.7 (0.5-2.0) mmol/L Calcium (8.6-10.3) mg/dL Magnesium (1.9-2.7) mg/dL Total Bilirubin (0.2-1.0) mg/dL AST (13-39) U/L ALT (7-52) U/L Alkaline Phosphatase (34-104) U/L Troponin I 0.01 (<0.04) ng/mL Total Protein (6.4-8.9) g/dL Albumin (3.2-5.2) g/dL Globulin (2-4) g/dL Albumin/Globulin Ratio (1-3) Result Diagrams: 04/23/17 17:15 04/23/17 17:15 Lab Statement: Any lab studies that have been ordered have been reviewed, and results considered in the medical decision making process. - Radiology CXR Xray Interpretation: No Acute Changes - IMPRESSION: No active cardiopulmonary dz Radiology Interpretation Completed By: Radiologist - CT Chest/thorax CTA CT Interpretation: No Acute Changes - IMPRESSION: Pulmonary embolus is persistent and appears to be slightly improved when compared to previous exam of April 30, 2017. Right lobe hepatic cyst. CT Interpretation Completed By: Radiologist - EKG 1711 Cardiac Rate: NL - 80bpm EKG Rhythm: Sinus Rhythm Ectopy: PVCs EKG Interpretation: poor R wave progression, anterior and inferior Q waves EKG Comparison: No Significant Change - same as EKG on 04/20/17 Re-Evaluation - Re-Evaluation 1 Re-Evaluation Time: 19:28 Change: Improved Comment: Discussing lab and diagnostic results with pt. Pt is feeling better but still anxious. Will keep pt for 2nd trop. Will give pt meds at 1999. 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 [facility] REFERRAL [Outside] Additional Instructions: Please establish and follow up with a primary care provider. Please return to the ED if you experience new or worsening symptoms. The documentation as recorded by the Angeles ortiz SooYoung accurately reflects the service I personally performed and the decisions made by me, Rosa Mcmanus MD.
== END 2017-04-23 22:20 | disposition home or self-care (01) ==
LOC: ED 17:05
DX: R07.9 Chest pain, unspecified (principal); R42 Dizziness and giddiness; R06.02 Shortness of breath; F17.210 Nicotine dependence, cigarettes, uncomplicated
CPT/HCPCS: 36415; 71010; 71275; 80053; 83605; 83735; 84484; 85025; 85610; 93005; 96374; 96376; 99284; A9270-GY; J1650; J2270; J3475; Q9967

== ENCOUNTER 2018-08-06 15:55 | Emergency (ER) | payer BC ==
[2018-08-06 16:30] LABS: ABS Basophils 0 10^3/ul (0-0.2); ABS Eosinophils 0.1 10^3/ul (0-0.6); ABS Lymphocytes 1.6 10^3/ul (1.0-4.8); ABS Monocytes 0.5 10^3/ul (0-0.8); ABS Neutrophils 5.7 10^3/ul (1.5-7.7); ABS Nucleated RBC 0 10^3/ul; Eosinophil % 0.8 %; Hematocrit 45 % (42-52); Hemoglobin 15.3 g/dl (14.0-18.0); Lymphocyte % 19.8 %; Mean Corpuscular HGB Conc 34 g/dl (31-36); Mean Corpuscular Hemoglobin 30 pg (27-31); Mean Corpuscular Volume 90 fL (80-94); Mean Platelet Volume 8.1 fL (7.4-10.4); Nucleated Red Blood Cells % 0.1; Platelet Count 212 10^3/ul (150-450); Red Blood Count 5.02 10^6/ul (4.00-5.40); Red Cell Distribution Width 14 % (10.5-15); White Blood Count 7.9 10^3/ul (3.5-10.8)
[2018-08-06 16:42] LABS: EGFR Non-African American 101.1 (>60)
[2018-08-06 17:52] LABS: Urine Appearance Clear; Urine Blood 1+ (Negative); Urine Color Yellow; Urine Ketones Negative (Negative); Urine Protein Negative (Negative); Urine Red Blood Cell Absent (Absent); Urine Specific Gravity 1.026 (1.010-1.030); Urine Urobilinogen Negative (Negative); Urine White Blood Cell Trace(0-5/hpf) (Absent)
--- NOTE | 2018-08-06 20:00 | ED ---
HPI Chest Pain - HPI Summary HPI Summary: Patient complains of progressive central and bilateral CP starting yesterday. 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 Patient called EMS was taken to [facility] where he was evaluated. Patient states he had negative CTA, negative cardiac enzymes, negative EKG, negative chest x-ray. Patient was discharged, and states chest pain was present when he woke up this morning. Patient also complains of episodes of palpitations in his chest 2 days. Palpitations occur 3-4 times daily. Chest pain described as bilateral, constant, 5 out of 10, pressure. Was given nitroglycerin spray by EMS in [place] with no change in symptoms. Patient denies fever, cough, sore throat, SOB, N/V/D, change in urine , abdominal pain, change in BM. Medical history is factor V with history of PE. Currently on Xarelto. Positive smoker. Positive family cardiac history. - History of Current Complaint Chief Complaint: EDChestWallPain Time Seen by Provider: 08/06/18 16:06 Hx Obtained From: Patient Onset/Duration: Started Days Ago Timing: Constant Initial Severity: Moderate Current Severity: Moderate Pain Intensity: 5 Pain Scale Used: 0-10 Numeric Chest Pain Location: Mid Sternal, Left Anterior, Right Anterior Chest Pain Radiates: No Character: Pressure/Squeezing Aggravating Factor(s): Nothing Alleviating Factor(s): Nothing Associated Signs and Symptoms: Positive: Chest Pain - Additional Pertinent History Primary Care Physician: [id number] - Allergy/Home Medications Allergies/Adverse Reactions: Allergies Allergy/AdvReac Type Severity Reaction Status Date / Time No Known Allergies Allergy Verified 04/16/17 16:04 Home Medications: Home Medications Rivaroxaban TAB(*) [Xarelto 20 mg] 20 mg PO DAILY 08/06/18 [History Confirmed ] PMH/Surg Hx/FS Hx/Imm Hx Endocrine/Hematology History: Denies: Hx Anticoagulant Therapy, Hx Diabetes Cardiovascular History: Reports: Hx Deep Vein Thrombosis Denies: Hx Hypertension Respiratory History: Reports: Hx Pulmonary Embolism - GI History: Reports: Hx Gall Bladder Disease History: Denies: Hx Dialysis, Hx Renal Disease Musculoskeletal History: Reports: Other Musculoskeletal History - Neck injury early 2017 Sensory History: Denies: Hx Contacts or Glasses, Hx Legally Blind, Hx Hearing Aid Opthamlomology History: Denies: Hx Contacts or Glasses, Hx Legally Blind Infectious Disease History: No Infectious Disease History: Denies: Traveled Outside the [place] in Last 30 Days - Family History Known Family History: Positive: Cardiac Disease - mother, father, Other - factor 5 - Social History Alcohol Use: Weekly Hx Substance Use: No Substance Use Type: Reports: None Hx Tobacco Use: Yes Smoking Status (MU): Current Every Day Smoker Review of Systems Constitutional: Negative Eyes: Negative ENT: Negative Positive: Chest Pain Respiratory: Negative Gastrointestinal: Negative Genitourinary: Negative Musculoskeletal: Negative Skin: Negative Neurological: Negative Psychological: Normal All Other Systems Reviewed And Are Negative: Yes Physical Exam Triage Information Reviewed: Yes Vital Signs On Initial Exam: Initial Vitals Temp Pulse Resp BP Pulse Ox 97.6 F 75 16 139/90 98 08/06/18 15:57 08/06/18 15:57 08/06/18 15:57 08/06/18 15:57 08/06/18 15:57 Vital Signs Reviewed: Yes Appearance: Positive: Well-Appearing Skin: Positive: Warm Head/Face: Positive: Normal Head/Face Inspection Eyes: Positive: Normal Neck: Positive: Supple Respiratory/Lung Sounds: Positive: Clear to Auscultation Cardiovascular: Positive: Normal Abdomen Description: Positive: Nontender Musculoskeletal: Positive: Normal Neurological: Positive: Normal Psychiatric: Positive: Normal AVPU Assessment: Alert - [place] Coma Scale Best Eye Response: 4 - Spontaneous Best Motor Response: 6 - Obeys Commands Best Verbal Response: 5 - Oriented Coma Scale Total: 15 Diagnostics - Vital Signs Vital Signs Temp Pulse Resp BP Pulse Ox 08/06/18 19:00 52 19 97 08/06/18 18:46 60 18 109/72 97 08/06/18 18:16 54 21 118/69 98 08/06/18 18:00 78 19 98 08/06/18 17:47 57 17 109/69 97 08/06/18 17:16 56 21 116/66 96 08/06/18 16:48 62 120/78 94 08/06/18 15:57 97.6 F 75 16 139/90 98 - Laboratory Lab Results: Lab Results 08/06/18 08/06/18 08/06/18 Range/Units 16:11 16:11 16:15 WBC 7.9 (3.5-10.8) 10^3/ul RBC 5.02 (4.00-5.40) 10^6/ul Hgb 15.3 (14.0-18.0) g/dl Hct 45 (42-52) % MCV 90 (80-94) fL MCH 30 (27-31) pg MCHC 34 (31-36) g/dl RDW 14 (10.5-15) % Plt Count 212 (150-450) 10^3/ul MPV 8.1 (7.4-10.4) fL Neut % (Auto) 72.5 % Lymph % (Auto) 19.8 % Nobles % (Auto) 6.5 % Eos % (Auto) 0.8 % Baso % (Auto) 0.4 % Absolute Neuts (auto) 5.7 (1.5-7.7) 10^3/ul Absolute Lymphs (auto) 1.6 (1.0-4.8) 10^3/ul Absolute Monos (auto) 0.5 (0-0.8) 10^3/ul Absolute Eos (auto) 0.1 (0-0.6) 10^3/ul Absolute Basos (auto) 0 (0-0.2) 10^3/ul Absolute Nucleated RBC 0 10^3/ul Nucleated RBC % 0.1 Sodium 140 (135-145) mmol/L Potassium 3.4 L (3.5-5.0) mmol/L Chloride 108 (101-111) mmol/L Carbon Dioxide 28 (22-32) mmol/L Anion Gap 4 (2-11) mmol/L BUN 12 (6-24) mg/dL Creatinine 0.82 (0.67-1.17) mg/dL Est GFR ( Amer) 122.4 (>60) Est GFR (Non-Af Amer) 101.1 (>60) BUN/Creatinine Ratio 14.6 (8-20) Glucose 128 H (70-100) mg/dL Calcium 9.0 (8.6-10.3) mg/dL Total Bilirubin 0.40 (0.2-1.0) mg/dL AST 14 (13-39) U/L ALT 12 (7-52) U/L Alkaline Phosphatase 75 (34-104) U/L Troponin I 0.00 (<0.04) ng/mL C-Reactive Protein 1.80 (<8.01) mg/L B-Natriuretic Peptide 22 (<=100) pg/mL Total Protein 6.2 L (6.4-8.9) g/dL Albumin 4.0 (3.2-5.2) g/dL Globulin 2.2 (2-4) g/dL Albumin/Globulin Ratio 1.8 (1-3) TSH 1.61 (0.34-5.60) mcIU/mL Urine Color Urine Appearance Urine pH (5-9) Ur Specific Lincoln (1.010-1.030) Urine Protein (Negative) Urine Ketones (Negative) Urine Blood (Negative) Urine Nitrate (Negative) Urine Bilirubin (Negative) Urine Urobilinogen (Negative) Ur Leukocyte Esterase (Negative) Urine WBC (Auto) (Absent) Urine RBC (Auto) (Absent) Urine Bacteria (Absent) Urine Glucose (Negative) 08/06/18 08/06/18 Range/Units 17:35 19:24 WBC (3.5-10.8) 10^3/ul RBC (4.00-5.40) 10^6/ul Hgb (14.0-18.0) g/dl Hct (42-52) % MCV (80-94) fL MCH (27-31) pg MCHC (31-36) g/dl RDW (10.5-15) % Plt Count (150-450) 10^3/ul MPV (7.4-10.4) fL Neut % (Auto) % Lymph % (Auto) % Nobles % (Auto) % Eos % (Auto) % Baso % (Auto) % Absolute Neuts (auto) (1.5-7.7) 10^3/ul Absolute Lymphs (auto) (1.0-4.8) 10^3/ul Absolute Monos (auto) (0-0.8) 10^3/ul Absolute Eos (auto) (0-0.6) 10^3/ul Absolute Basos (auto) (0-0.2) 10^3/ul Absolute Nucleated RBC 10^3/ul Nucleated RBC % Sodium (135-145) mmol/L Potassium (3.5-5.0) mmol/L Chloride (101-111) mmol/L Carbon Dioxide (22-32) mmol/L Anion Gap (2-11) mmol/L BUN (6-24) mg/dL Creatinine (0.67-1.17) mg/dL Est GFR ( Amer) (>60) Est GFR (Non-Af Amer) (>60) BUN/Creatinine Ratio (8-20) Glucose (70-100) mg/dL Calcium (8.6-10.3) mg/dL Total Bilirubin (0.2-1.0) mg/dL AST (13-39) U/L ALT (7-52) U/L Alkaline Phosphatase (34-104) U/L Troponin I 0.00 (<0.04) ng/mL C-Reactive Protein (<8.01) mg/L B-Natriuretic Peptide (<=100) pg/mL Total Protein (6.4-8.9) g/dL Albumin (3.2-5.2) g/dL Globulin (2-4) g/dL Albumin/Globulin Ratio (1-3) TSH (0.34-5.60) mcIU/mL Urine Color Yellow Urine Appearance Clear Urine pH 7.0 (5-9) Ur Specific [place] 1.026 (1.010-1.030) Urine Protein Negative (Negative) Urine Ketones Negative (Negative) Urine Blood 1+ A (Negative) Urine Nitrate Negative (Negative) Urine Bilirubin Negative (Negative) Urine Urobilinogen Negative (Negative) Ur Leukocyte Esterase Negative (Negative) Urine WBC (Auto) Trace(0-5/hpf) (Absent) Urine RBC (Auto) Absent (Absent) Urine Bacteria Absent (Absent) Urine Glucose Negative (Negative) Result Diagrams: 08/06/18 16:11 08/06/18 16:11 Lab Statement: Any lab studies that have been ordered have been reviewed, and results considered in the medical decision making process. Chest Pain Course/Dx - Course Course Of Treatment: Patient complains of progressive central and bilateral CP starting yesterday. 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 Patient called EMS was taken to [facility] where he was evaluated. Patient states he had negative CTA, negative cardiac enzymes, negative EKG, negative chest x-ray. Patient was discharged, and states chest pain was present when he woke up this morning. Patient also complains of episodes of palpitations in his chest 2 days. Palpitations occur 3-4 times daily. Chest pain described as bilateral, constant , 5 out of 10, pressure. Was given nitroglycerin spray by EMS in [place] with no change in symptoms. Patient denies fever, cough, sore throat, SOB, N/V/D, change in urine, abdominal pain, change in BM. Medical history is factor V with history of PE. Currently on Xarelto. Positive smoker. Positive family cardiac history. Physical exam unremarkable. Episodes of bradycardia otherwise Vital signs within normal limits. Chest x-ray negative. EKG unremarkable. Cardiac enzymes unremarkable. Labs unremarkable. Patient advised to follow up with cardiology for Holter monitor and stress test. Patient understands and approves of plan. - Diagnoses Provider Diagnoses: Chest pain Discharge - Sign-Out/Discharge Documenting (check all that apply): Patient Departure - Discharge Plan Condition: Stable Disposition: HOME Patient Education Materials: Chest Pain (ED) Referrals: Damaris Urrutia MD [Primary Care Provider] - Ac Stewart MD [Medical Doctor] - Additional Instructions: Follow-up with burner technician Dr. Stewart for further evaluation of chest pain possibly involving Holter monitor and/or stress test. Return to the ED for any new or worsening symptoms. - Billing Disposition and Condition Condition: STABLE Disposition: Home
[2018-08-06 20:23] VITALS: BP 112/72
== END 2018-08-06 20:24 | disposition home or self-care (01) ==
LOC: ED 15:55
DX: R07.9 Chest pain, unspecified (principal); D68.51 Activated protein C resistance; Z86.711 Personal history of pulmonary embolism; Z79.01 Long term (current) use of anticoagulants; Z86.718 Personal history of other venous thrombosis and embolism; Z72.0 Tobacco use
CPT/HCPCS: 36415; 71045; 80053; 81003; 81015; 83880; 84443; 84484; 85025; 86140; 87086; 93005; 99283